=== PATIENT | male | born 2000 ===

== ENCOUNTER 2018-07-02 13:47 | Emergency (ER) | payer OTHER ==
[2018-07-02 14:00] VITALS: BP 130/85; PULSE 71; RESP 18; TEMP 99; O2SAT 99
[2018-07-02] MEDS ORDERED: Amoxicillin-Clav 875-125 mg Tab PO STA (14:10)
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
[2018-07-02] MEDS ORDERED: Amoxicillin-Clav 875-125 mg Tab PO ONE (14:20)
--- NOTE | 2018-07-02 15:26 | RAD ---
Date of service: 07/02/2018 PROCEDURE: Right Wrist Radiographs. HISTORY: trauma COMPARISON: None. FINDINGS: BONES: Normal. No fracture. JOINTS: Normal. No dislocation. SOFT TISSUES: Normal. OTHER FINDINGS: None. IMPRESSION: Normal right wrist radiographs.
== END 2018-07-02 15:37 | disposition home or self-care (01) ==
LOC: H.ER 13:47
DX: S61.551A Open bite of right wrist, initial encounter (principal); W54.0XXA Bitten by dog, initial encounter